=== PATIENT | female | born 1985 | race African-American/Black ===

== ENCOUNTER 2020-07-12 21:44 | Emergency (ER) | payer OTHER ==
[~2020-07-12] VITALS: Ht 162.6 cm; Wt 86.4 kg
[2020-07-12] MEDS ORDERED: APIX5TAB PO (21:54)
[2020-07-13] MEDS ORDERED: CEPHALEXIN MONOHYDRATE 500 MG CAPSULE PO ONE (01:15)
[2020-07-13] MEDS ORDERED: DOXYCYCLINE HYCLATE 100 MG TABLET PO ONE (01:15)
[2020-07-13 02:30] VITALS: BP 126/74
== END 2020-07-13 04:27 | disposition home or self-care (01) ==
LOC: EMS 21:46 → EDBD 21:46 → EMS 07-13 04:27
DX: S63.613A Unspecified sprain of left middle finger, initial encounter (principal); L03.012 Cellulitis of left finger; Z86.711 Personal history of pulmonary embolism; W22.8XXA Striking against or struck by other objects, initial encounter; Y93.89 Activity, other specified; Y92.89 Other specified places as the place of occurrence of the external cause; Y99.8 Other external cause status
CPT/HCPCS: 99283